=== PATIENT | male | born 1995 | race Caucasian/White ===

== ENCOUNTER 2016-12-06 17:42 | Emergency (ER) | payer BC ==
--- NOTE | 2016-12-06 18:45 | ED PDOC ---
Upper Extremity Pain/Injury Time Seen by Provider: 12/06/16 17:50 Chief Complaint (Nursing): Upper Extremity Problem/Injury Chief Complaint (Provider): Right Wrist Injury History Per: Patient History/Exam Limitations: no limitations Current Symptoms Are (Timing): Still Present Additional Complaint(s): Yamil Muniz, a 21 year old male, presents to the ED with a right wrist injury. The patient reports that he fell off a stool 2 days ago. He states that he took motrin and percocet at home to relieve the pain. Denies swelling but does have some localized pain. Past Medical History Reviewed: Historical Data, Nursing Documentation, Vital Signs - Medical History PMH: No Chronic Diseases - Surgical History Surgical History: No Surg Hx - Family History Family History: States: Unknown Family Hx - Allergies Allergies/Adverse Reactions: Allergies Allergy/AdvReac Type Severity Reaction Status Date / Time No Known Allergies Allergy Verified 12/06/16 17:57 Review of Systems Musculoskeletal: Positive for: Other (Right wrist pain.) Physical Exam - Reviewed Nursing Documentation Reviewed: Yes Vital Signs Reviewed: Yes - Physical Exam Appears: Positive for: Non-toxic, No Acute Distress Head Exam: Positive for: ATRAUMATIC, NORMAL INSPECTION, NORMOCEPHALIC Skin: Positive for: Normal Color, Warm, Dry. Negative for: Rash (No ecchymosis) Eye Exam: Positive for: Normal appearance ENT: Positive for: Normal ENT Inspection Neck: Positive for: Normal Cardiovascular/Chest: Negative for: Tachycardia Respiratory: Negative for: Wheezing, Respiratory Distress Pulses-Radial (L): 2+ Pulses-Radial (R): 2+ Gastrointestinal/Abdominal: Negative for: Tenderness, Guarding Back: Positive for: Normal Inspection. Negative for: L CVA Tenderness, R CVA Tenderness Extremity: Positive for: Tenderness (Tenderness of distal ulnar and radius.), Capillary Refill (Capillary refills intact; ). Negative for: Normal ROM ( Decrease flexion/extension of right wrist.), Deformity, Swelling Neurologic/Psych: Positive for: Alert, Oriented, Gait Medical Decision Making Medical Decision Makin Initial Impression: 21 year old female presenting with right wrist pain Initial Plan: * RAD Right wrist * Reevaluation Scribe Attestation Documented by Radha Nash acting as a scribe for Danii Garcia PA-C. Scribe Attestation All medical record entries made by the Scribe were at my direction and personally dictated by me. I have reviewed the chart and agree that the record accurately reflects my personal performance of the history, physical exam, medical decision making, and the department course for this patient. I have also personally directed, reviewed, and agree with the discharge instructions and disposition. Disposition - Clinical Impression Clinical Impression: Wrist injury - Patient ED Disposition Is Patient to be Admitted: No Counseled Patient/Family Regarding: Diagnosis, Need For Followup - Disposition Referrals: Bijan Hauser MD [Staff Provider] - Disposition: Routine/Home Disposition Time: 18:43 Condition: GOOD Additional Instructions: Ice, elevation, motrin. Instructions: Wrist Injury (ED)
--- NOTE | 2016-12-07 10:59 | RAD ---
PROCEDURE: Right Wrist Radiographs. HISTORY: right wrist pain s/p fall COMPARISON: None. FINDINGS: BONES: Bone alignment and mineralization are normal No acute fracture. JOINTS: Normal. No dislocation. SOFT TISSUES: Normal. OTHER FINDINGS: None. IMPRESSION: No acute fracture or dislocation.
== END 2016-12-06 18:55 | disposition home or self-care (01) ==
LOC: H.ER 17:42
DX: S63.501A Unspecified sprain of right wrist, initial encounter (principal); W19.XXXA Unspecified fall, initial encounter; Y92.89 Other specified places as the place of occurrence of the external cause